=== PATIENT | male | born 1995 | race Caucasian/White ===

== ENCOUNTER 2018-11-07 21:39 | Inpatient (IN) | payer SELFPAY ==
[2018-11-07] MEDS ORDERED: NA CHLORIDE 0.9% 1,000 ML ONE (23:43)
[2018-11-07 23:58] LABS: Absolute Lymphocytes (CBC) 2.6 K/uL (0.7-4.9); Basophils % 0.9 % (0-1.3); Hematocrit 38.7 % (39.6-49.0); Lymphocytes % 30.1 % (15.3-44.8); MPV 8.5 fL (7.6-11.3); RBC Red Blood Cell Count 4.51 M/uL (4.33-5.43)
[2018-11-08] MEDS ORDERED: NA CHLORIDE 0.9% 1,000 ML ONE (02:29)
[2018-11-08] MEDS ORDERED: CEFEPIME 1 GM/100 ML BAG IV ONE (02:29)
--- NOTE | 2018-11-08 02:30 | EDPHYS ---
Physician Documentation [facility] Name: Robin Brooks Age: 23 yrs Sex: Male : 1995 Arrival Date: 11/07/2018 Time: 21:55 Bed 18 Private MD: ED Physician Parker Puckett HPI: 11/08 02:24 This 23 yrs old Male presents to ER via Ambulatory with complaints of Hip snw Pain. 02:24 The patient or guardian reports pain, swelling, to left anterior upper thigh/inguinal snw area. that occurred at an unknown site, sustained from unknown reason, There is no obvious deformity. The complaints affect the left upper thigh. Onset: The symptoms/episode began/occurred 5 week(s) ago, and became worse yesterday, and became persistent 1 weeks ago. Associated signs and symptoms: Loss of consciousness: the patient experienced no loss of consciousness. Severity of symptoms: At their worst the symptoms were moderate. It is unknown whether or not the patient has had similar symptoms in the past. another ED within the last 2 weeks, took a course of doxycycline. Historical: - Allergies: 11/07 22:38 No Known Allergies; ao - Home Meds: 22:38 Doxycycline Oral [Active]; ao - PMHx: 22:38 Hypertension; ao - PSHx: 22:38 None; ao - Immunization history:: Adult Immunizations up to date, Last tetanus immunization: unknown. - Social history:: Smoking status: Patient/guardian denies using tobacco, Patient uses alcohol, occasionally. Patient/guardian denies using street drugs, IV drugs. - Ebola Screening: : Patient negative for fever greater than or equal to 101.5 degrees Fahrenheit, and additional compatible Ebola Virus Disease symptoms Patient denies exposure to infectious person Patient denies travel to an Ebola-affected area in the 21 days before illness onset. ROS: 23:46 Constitutional: Negative for fever, chills, and weight loss, Eyes: Negative for injury, snw pain, redness, and discharge, ENT: Negative for injury, pain, and discharge, Neck: Negative for injury, pain, and swelling, Cardiovascular: Negative for chest pain, palpitations, and edema, Respiratory: Negative for shortness of breath, cough, wheezing, and pleuritic chest pain, Abdomen/GI: Negative for abdominal pain, nausea, vomiting, diarrhea, and constipation, Back: Negative for injury and pain, : Negative for injury, bleeding, discharge, and swelling, Skin: Negative for injury, rash, and discoloration, Neuro: Negative for headache, weakness, numbness, tingling, and seizure. 23:46 MS/extremity: Positive for pain, swelling, tenderness, warmth, of the left upper thigh, harder and more red than previous visit to [facility]. Exam: 23:45 Constitutional: This is a well developed, well nourished patient who is awake, alert, snw and in no acute distress. Head/Face: Normocephalic, atraumatic. Eyes: Pupils equal round and reactive to light, extra-ocular motions intact. Lids and lashes normal. Conjunctiva and sclera are non-icteric and not injected. Cornea within normal limits. Periorbital areas with no swelling, redness, or edema. ENT: Nares patent. No nasal discharge, no septal abnormalities noted. Tympanic membranes are normal and external auditory canals are clear. Oropharynx with no redness, swelling, or masses, exudates, or evidence of obstruction, uvula midline. Mucous membranes moist. Neck: Trachea midline, no thyromegaly or masses palpated, and no cervical lymphadenopathy. Supple, full range of motion without nuchal rigidity, or vertebral point tenderness. No Meningismus. Chest/axilla: Normal chest wall appearance and motion. Nontender with no deformity. No lesions are appreciated. Cardiovascular: Regular rate and rhythm with a normal S1 and S2. No gallops, murmurs, or rubs. Normal PMI, no JVD. No pulse deficits. Respiratory: Lungs have equal breath sounds bilaterally, clear to auscultation and percussion. No rales, rhonchi or wheezes noted. No increased work of breathing, no retractions or nasal flaring. Abdomen/GI: Soft, non-tender, with normal bowel sounds. No distension or tympany. No guarding or rebound. No evidence of tenderness throughout. Back: No spinal tenderness. No costovertebral tenderness. Full range of motion. MS/ Extremity: Pulses equal, no cyanosis. Neurovascular intact. Full, normal range of motion. Neuro: Awake and alert, GCS 15, oriented to person, place, time, and situation. Cranial nerves II-XII grossly intact. Motor strength 5/5 in all extremities. Sensory grossly intact. Cerebellar exam normal. Normal gait. Psych: Awake, alert, with orientation to person, place and time. Behavior, mood, and affect are within normal limits. 23:45 Skin: Appearance: normal except for affected area, induration, that is severe is noted, located on the left upper thigh, Other area erythematous, hard induration. Vital Signs: 22:31 BP 120 / 65; Pulse 80; Resp 18; Temp 98.1; Pulse Ox 99% ; Weight 108.86 kg; Height 5 ao ft. 8 in. (172.72 cm); Pain 0/10; 11/08 00:30 BP 129 / 67; Pulse 67; Resp 16; Pulse Ox 99% on R/A; jb4 01:30 BP 133 / 56; Pulse 63; Resp 16; Pulse Ox 98% on R/A; jb4 02:15 BP 134 / 66; Pulse 70; Resp 16; Pulse Ox 100% on R/A; jb4 03:00 BP 136 / 63; Pulse 73; Resp 16; Pulse Ox 98% on R/A; jb4 03:45 BP 108 / 42; Pulse 69; Resp 16; Pulse Ox 99% on R/A; jb4 11/07 22:31 Body Mass Index 36.49 (108.86 kg, 172.72 cm) ao MDM: 11/07 23:38 Patient medically screened. snw 11/08 02:28 Data reviewed: vital signs, nurses notes. Data interpreted: Pulse oximetry: on room air snw is 100 %. Interpretation: normal. Counseling: I had a detailed discussion with the patient and/or guardian regarding: the historical points, exam findings, and any diagnostic results supporting the discharge/admit diagnosis, lab results, radiology results, the need for further work-up and treatment in the hospital. 11/07 23:28 Order name: CBC with Diff; Complete Time: 00:07 snw 11/07 23:28 Order name: Chem 7; Complete Time: 00:25 snw 11/07 23:28 Order name: Blood Culture Adult (2) snw 11/07 23:51 Order name: CT Pelvis w cont snw Administered Medications: 11/07 23:55 Drug: NS 0.9% 1000 ml Route: IV; Rate: 125 ml/hr; Site: right antecubital; jb4 11/08 03:48 Follow up: IV Status: Infusion continued upon admission jb4 02:39 Drug: Cefepime 1 grams Route: IVPB; Rate: 200 ml/hr; Infused Over: 30 mins; Site: right jb4 antecubital; 03:09 Follow up: Response: No adverse reaction; IV Status: Completed infusion; IV Intake: jb4 100ml 02:39 Drug: NS 0.9% 1000 ml Route: IV; Rate: 1 bolus; Site: right antecubital; jb4 03:47 Follow up: Response: No adverse reaction; IV Status: Completed infusion; IV Intake: jb4 1000ml 03:37 Drug: vancoMYCIN 1 grams Route: IVPB; Infused Over: 2 hrs; Site: right antecubital; jb4 03:48 Follow up: Response: No adverse reaction; IV Status: Infusion continued upon admission jb4 Disposition: 05:15 Co-signature as Attending Physician, Parker Puckett MD Available for consultation at ps1 all times . Disposition: 11/08/18 02:28 Hospitalization ordered by Azar River for Observation. Preliminary diagnosis is Left upper thigh/inguinal abscess with surrounding cellulitis. - Bed requested for Telemetry/MedSurg (observation). - Status is Observation. jb4 - Condition is Stable. - Problem is an ongoing problem. - Symptoms have worsened. UTI on Admission? No Signatures: Dispatcher [employer] EDKY Angeles Contreras, ROBIN-C SUPERVISOR [employer]OLD [employer]STRUCTION-Csnw Margarita Kuhn RN RN Ryan Albert RN RN ao Bryson, James, RN RN [facility] Parker Puckett MD MD ps1 Corrections: (The following items were deleted from the chart) 03:30 02:28 Hospitalization Ordered by Azar River DO for Observation. Preliminary cg diagnosis is Left upper thigh/inguinal abscess with surrounding cellulitis. Bed requested for Telemetry/MedSurg (observation). Status is Observation. Condition is Stable. Problem is an ongoing problem. Symptoms have worsened. UTI on Admission? No. snw 04:29 03:30 11/08/2018 02:28 Hospitalization Ordered by Azar River DO for Observation. jb4 Preliminary diagnosis is Left upper thigh/inguinal abscess with surrounding cellulitis. Bed requested for Telemetry/MedSurg (observation). Status is Observation. Condition is Stable. Problem is an ongoing problem. Symptoms have worsened. UTI on Admission? No. cg
--- NOTE | 2018-11-08 02:30 | ER ---
Nurse's Notes [facility] Name: Robin Brooks Age: 23 yrs Sex: Male : 1995 Arrival Date: 11/07/2018 Time: 21:55 Bed 18 Private MD: Diagnosis: Left upper thigh/inguinal abscess with surrounding cellulitis Presentation: 11/07 22:32 Presenting complaint: Patient states: Report left hip pain for about five weeks. ao Patient has a rash that look like cellulitis in the left groin. Patient has been treated in the past and was prescribed antibiotics but the problem still there. Transition of care: patient was not received from another setting of care. Onset of symptoms is unknown. Risk Assessment: Do you want to hurt yourself or someone else? Patient reports no desire to harm self or others. Initial Sepsis Screen: Does the patient meet any 2 criteria? No. Patient's initial sepsis screen is negative. Does the patient have a suspected source of infection? No. Patient's initial sepsis screen is negative. Care prior to arrival: None. 22:32 Method Of Arrival: Ambulatory ao 22:32 Method Of Arrival: Ambulatory ao 22:32 Acuity: MAURICIO 3 ao Historical: - Allergies: 22:38 No Known Allergies; ao - Home Meds: 22:38 Doxycycline Oral [Active]; ao - PMHx: 22:38 Hypertension; ao - PSHx: 22:38 None; ao - Immunization history:: Adult Immunizations up to date, Last tetanus immunization: unknown. - Social history:: Smoking status: Patient/guardian denies using tobacco, Patient uses alcohol, occasionally. Patient/guardian denies using street drugs, IV drugs. - Ebola Screening: : Patient negative for fever greater than or equal to 101.5 degrees Fahrenheit, and additional compatible Ebola Virus Disease symptoms Patient denies exposure to infectious person Patient denies travel to an Ebola-affected area in the 21 days before illness onset. Screenin:10 Abuse screen: Denies threats or abuse. Denies injuries from another. Nutritional ao screening: No deficits noted. Tuberculosis screening: No symptoms or risk factors identified. Fall Risk None identified. Assessment: 22:30 General: Appears in no apparent distress. comfortable, Behavior is calm, cooperative, ao appropriate for age. Pain: Complains of pain in Right groin Pain does not radiate. Pain currently is 4 out of 10 on a pain scale. Quality of pain is described as burning. Neuro: Level of Consciousness is awake, alert, obeys commands, Oriented to person, place, time, situation, Appropriate for age Moves all extremities. Full function Speech is normal, Cardiovascular: Heart tones S1 S2 Capillary refill < 3 seconds Patient's skin is warm and dry. Respiratory: Airway is patent Respiratory effort is even, unlabored, Respiratory pattern is regular, symmetrical. GI: Abdomen is non-distended. : No signs and/or symptoms were reported regarding the genitourinary system. : Reports. EENT: No signs and/or symptoms were reported regarding the EENT system. Derm: Reports itching, In right groin area. Musculoskeletal: Range of motion: Swelling present in right groin area. 23:30 Reassessment: Patient appears in no apparent distress at this time. Patient and/or jb4 family updated on plan of care and expected duration. Pain level reassessed. Patient is alert, oriented x 3, equal unlabored respirations, skin warm/dry/pink. 11/08 00:30 Reassessment: Patient appears in no apparent distress at this time. Patient and/or jb4 family updated on plan of care and expected duration. Pain level reassessed. Patient is alert, oriented x 3, equal unlabored respirations, skin warm/dry/pink. 01:30 Reassessment: Patient appears in no apparent distress at this time. Patient and/or jb4 family updated on plan of care and expected duration. Pain level reassessed. Patient is alert, oriented x 3, equal unlabored respirations, skin warm/dry/pink. 02:20 Reassessment: Patient appears in no apparent distress at this time. Patient and/or jb4 family updated on plan of care and expected duration. Pain level reassessed. Patient is alert, oriented x 3, equal unlabored respirations, skin warm/dry/pink. 03:30 Reassessment: Patient appears in no apparent distress at this time. Patient and/or jb4 family updated on plan of care and expected duration. Pain level reassessed. Patient is alert, oriented x 3, equal unlabored respirations, skin warm/dry/pink. 04:26 Reassessment: Patient appears in no apparent distress at this time. Patient and/or jb4 family updated on plan of care and expected duration. Pain level reassessed. Patient is alert, oriented x 3, equal unlabored respirations, skin warm/dry/pink. Vital Signs: 11/07 22:31 BP 120 / 65; Pulse 80; Resp 18; Temp 98.1; Pulse Ox 99% ; Weight 108.86 kg; Height 5 ao ft. 8 in. (172.72 cm); Pain 0/10; 11/08 00:30 BP 129 / 67; Pulse 67; Resp 16; Pulse Ox 99% on R/A; jb4 01:30 BP 133 / 56; Pulse 63; Resp 16; Pulse Ox 98% on R/A; jb4 02:15 BP 134 / 66; Pulse 70; Resp 16; Pulse Ox 100% on R/A; jb4 03:00 BP 136 / 63; Pulse 73; Resp 16; Pulse Ox 98% on R/A; jb4 03:45 BP 108 / 42; Pulse 69; Resp 16; Pulse Ox 99% on R/A; jb4 11/07 22:31 Body Mass Index 36.49 (108.86 kg, 172.72 cm) ao ED Course: 11/07 21:55 Patient arrived in ED. cf2 22:37 Triage completed. ao 22:37 Arm band placed on right wrist. Patient placed in an exam room, on a stretcher, on ao pulse oximetry, Patient notified of wait time. 22:46 Angeles Contreras FNP-C is [facility] snw 22:46 Parker Puckett MD is Attending Physician. snw 23:10 Patient has correct armband on for positive identification. Pulse ox on. NIBP on. ao 23:38 Glenn Soria, RN is Primary Nurse. jb4 11/08 00:53 CT completed. Patient tolerated procedure well. Patient moved to CT via stretcher. Patient moved back from CT. 00:57 CT Pelvis w cont In Process Unspecified. EDMS 02:27 Azar River DO is Hospitalizing Provider. snw 04:28 No provider procedures requiring assistance completed. Patient admitted, IV remains in jb4 place. Administered Medications: 11/07 23:55 Drug: NS 0.9% 1000 ml Route: IV; Rate: 125 ml/hr; Site: right antecubital; jb4 11/08 03:48 Follow up: IV Status: Infusion continued upon admission jb4 02:39 Drug: Cefepime 1 grams Route: IVPB; Rate: 200 ml/hr; Infused Over: 30 mins; Site: right jb4 antecubital; 03:09 Follow up: Response: No adverse reaction; IV Status: Completed infusion; IV Intake: jb4 100ml 02:39 Drug: NS 0.9% 1000 ml Route: IV; Rate: 1 bolus; Site: right antecubital; jb4 03:47 Follow up: Response: No adverse reaction; IV Status: Completed infusion; IV Intake: jb4 1000ml 03:37 Drug: vancoMYCIN 1 grams Route: IVPB; Infused Over: 2 hrs; Site: right antecubital; jb4 03:48 Follow up: Response: No adverse reaction; IV Status: Infusion continued upon admission jb4 Intake: 03:09 IV: 100ml; Total: 100ml. jb4 03:47 IV: 1000ml; Total: 1100ml. jb4 Outcome: 02:28 Decision to Hospitalize by Provider. snw 04:28 Admitted to Med/surg accompanied by nurse, via wheelchair, room 214, with chart. jb4 04:28 Condition: stable 04:28 Discharge instructions given to patient, family, Instructed on the need for admit, Demonstrated understanding of instructions. 04:29 Patient left the ED. jb4 Signatures: Dispatcher [employer] EDMS Angeles Contreras, SENIOR QA TESTER-C SENIOR QA TESTER-Csnw Obey Pollock Alex, RN RN ao Bryson, James, RN RN jb4 Patrick Dinh 2
--- NOTE | 2018-11-08 02:59 | P.HP ---
Certification for Inpatient Patient admitted to: Inpatient With expected LOS: >2 Midnights Patient will require the following post-hospital care: None Practitioner: I am a practitioner with admitting privileges, knowledge of patient current condition, hospital course, and medical plan of care. Services: Services provided to patient in accordance with Admission requirements found in Title 42 Section 412.3 of the Code of Federal Regulations Patient History Date of Service: 11/08/18 Primary Care Provider: none Reason for admission: Fever, failed outpatient treatment History of Present Illness: 23-year-old male presented to the emergency room with fever. Patient was seen about 2 weeks ago for cellulitis to the left thigh. He was seen at [facility]. He had a major workup including CT scan which showed no drainable abscess at that time. HIV studies and workup unremarkable. Patient was sent home with doxycycline. Patient admits that he did not finish the doxycycline as the cellulitis did not improve. Over the last 2 weeks it has been getting worse. He start to notice some induration to the left upper thigh. Erythema, fever noted. He came to the ER for further evaluation. In the ER patient evaluated. White count 8.7, hemoglobin 13.3. Platelet count of 295. Percent eosinophils 4.5. Sodium 142, potassium 4.0. Creatinine 1.2 with a GFR 78. CT scan showed anterior proximal left thigh subcutaneous 4 cm abscess with cellulitis and associated lymphadenopathy. Patient was started on IV antibiotic therapy. Patient admitted for further evaluation and treatment. When I saw the patient ER, he appeared comfortable. Pain under control. at bedside. Patient does not recall any insect bite to the area. No mention of laceration or breakdown in skin. No exudate noted. Home medications list reviewed: Yes - Past Medical/Surgical History Diabetic: No Past Medical History: Patient denies medical history -: cyst moved to the left chest region Psychosocial/ Personal History: Patient is . He has 3 children. 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 - Family History Family History: Reviewed- Non-Contributory - Social History Smoking Status: Never smoker Alcohol use: Yes CD- Drugs: No Caffeine use: Yes Place of Residence: Home Review of Systems General: Fever, As per HPI Eyes: Unremarkable ENT: Unremarkable Respiratory: Unremarkable Cardiovascular: Unremarkable Gastrointestinal: Unremarkable Genitourinary: Unremarkable Musculoskeletal: Leg Pain, As per HPI Integumentary: As per HPI Neurological: Unremarkable Lymphatics: Enlarged lymph nodes, As per HPI Physical Examination - Physical Exam General: Alert, In no apparent distress, Oriented x3, Cooperative HEENT: Atraumatic, Normocephalic, PERRLA, Mucous membr. moist/pink Neck: Supple, No Thyromegaly Respiratory: Clear to auscultation bilaterally, Normal air movement Cardiovascular: Normal pulses, Regular rate/rhythm Gastrointestinal: Normal bowel sounds, Soft and benign, Non-distended, No tenderness, No masses, No rebound, No guarding Musculoskeletal: Other (Large injury did area to the anterior left upper thigh. Measuring about 4-5 cm. Erythema, warmth and pain noted) Integumentary: Other (As above) Neurological: Normal speech, Normal strength at 5/5 x4 extr, Normal tone, Normal affect Lymphatics: Inguinal lymphadenopathy - Studies Laboratory Data (last 24 hrs) 11/07/18 23:30: Sodium 142, Potassium 4.0, BUN 13, Creatinine 1.21, Glucose 81 11/07/18 23:30: WBC 8.7, Hgb 13.3 L, Hct 38.7 L, Plt Count 295 Assessment and Plan - Plan Impression: Anterior proximal left thigh subcutaneous 4 cm abscess with cellulitis and associated lymphadenopathy, failed outpatient therapy Plan: Patient admitted for further evaluation and treatment. Will keep the patient NPO as the patient will likely require surgical intervention today. Surgery consulted to further evaluate and treat. Will start IV vancomycin and cefepime for antibiotic coverage. Blood cultures obtained. Will monitor lab and electrolytes. Will provide DVT prophylaxis-Lovenox. Will provide medication for pain. Daytime hospitalist will continue his care. Anticipate discharge in the next 3-5 days pending surgical evaluation/treatment and clinical improvement. Discharge Plan: Home Plan to discharge in: Greater than 2 days - Advance Directives Does patient have a Living Will: No Does patient have a Durable POA for Healthcare: No - Code Status/Comfort Care Code Status Assessed: Yes (Patient is full code) Time Spent Managing Pts Care (In Minutes): 55
[2018-11-08] MEDS ORDERED: VANCOMYCIN 1 GM/VIAL ONE (03:23)
[2018-11-08] MEDS ORDERED: NA CHLORIDE 0.9% 250 ML ONE (03:23)
[2018-11-08] MEDS ORDERED: ONDANSETRON 4 MG/2 ML VIAL IV PRN (04:29)
[2018-11-08] MEDS ORDERED: HYDROCODONE/APAP 7.5/325 MG TAB PO PRN (04:29)
[2018-11-08] MEDS ORDERED: ACETAMINOPHEN 500 MG TAB PO PRN (04:29)
[2018-11-08] MEDS ORDERED: ACETAMINOPHEN 650MG/RECT SUPP RECT PRN (04:29)
[2018-11-08] MEDS ORDERED: TRAMADOL HCL 50 MG TAB PO PRN (04:29)
[2018-11-08 05:41] VITALS: BMI 36.5
[2018-11-08] MEDS ORDERED: Ringers Lactate 0 ML IV ONE (07:53)
[2018-11-08] MEDS: Ringers Lactate 1,000 ML IV ONE ×2 (08:00→14:25)
[2018-11-08] MEDS ORDERED: INFLUENZA VACCINE (for 3y+) 0.5 ML DOSE IMVAC ONE (08:00)
[2018-11-08] MEDS ORDERED: PROPOFOL 200 MG/20 ML VIAL IV ONE ×2 (08:22→14:23)
[2018-11-08] MEDS ORDERED: FENTANYL CITR 100 MCG/2 ML ONE ×2 (08:22→14:23)
[2018-11-08] MEDS ORDERED: MIDAZOLAM HCL 2 MG/2 ML INJ ONE ×3 (08:22→15:11)
[2018-11-08] MEDS ORDERED: LIDOCAINE 2% MPF 5 ML VIAL ONE ×2 (08:23→14:23)
[2018-11-08] MEDS ORDERED: GLYCOPYRROLATE 0.2 MG/ML SYR ONE (08:27)
[2018-11-08] MEDS ORDERED: ONDANSETRON 4 MG/2 ML VIAL ONE ×2 (08:27→14:24)
[2018-11-08] MEDS ORDERED: HYDRALAZINE HCL 20 MG/ML VIAL ONE ×2 (08:28→08:30)
--- NOTE | 2018-11-08 08:52 | CON ---
Date of Consultation: 11/08/2018 Diagnoses: Left thigh cellulitis and abscess, failure of outpatient treatment. History Of Present Illness: This is the case of a 23-year-old patient, apparently he has been in ER for the last 2 weeks with cellulitis of the anterior thigh. He has been in [place] ER and also this ER on more than 1 occasion. He has been taking doxycycline but has since not improved. Patient was admitted to the hospital with an abscess of the left anterior thigh, groin region. Surgical consult was obtained for incision and drainage. He denies any trauma, dysuria, hematuria, hematochezia or [place]. Denies recent traveling out of the country. Denies any family member sick at home. Past Medical History: None. Surgical History: None. Social History: He does not smoke. He does not drink alcohol. Family History: Noncontributory. Medications: Doxycycline. Review of Systems: Ten points, otherwise unremarkable. Physical Examination: GENERAL: The patient is awake and alert. No distress. HEENT: Pupils are equal and reactive, anicteric. NECK: Supple. CHEST: Clear. HEART: S1, S2. ABDOMEN: Soft and depressible. Nontender, nondistended. Bowel sounds positive. GENITALIA: No mass palpated. EXTREMITIES: Over the extremities and the left anterior thigh, right at the proximal inner thigh, th e patient has an area of cellulitis, have to be at least 15 x 18 cm in size. There is pre sent. No trauma seen. The rest of the leg looks intact with good peripheral pulses. Full range of motion. No cyanosis. RECTAL: Not involved. Laboratory Data: Blood work shows WBC count of 8.7, hemoglobin of 13.3, and potassium 4.0. Assessment: Left thigh cellulitis and abscess. Plan: Will be incision and drainage of left thigh cellulitis with benefits, alternatives, and risks including, but not limited to infection, bleeding, damage to adjacent structures, anesthesia complica tion, recurrence, UT, and even . He also understands this may not relieve any symptoms. He diane ht need more than one surgical intervention. He understood, signed a consent. He was booked in OR. JORGE/KALPESH Voice ID: [id number] Report ID: [id number]
[2018-11-08] MEDS ORDERED: LORazepam 2 MG/ML VIAL IV ONE (08:55)
[2018-11-08] MEDS ORDERED: HYDRALAZINE HCL 20 MG/ML VIAL IV PRN (08:57)
[2018-11-08] MEDS ORDERED: LABETALOL HCL 100 MG/20 ML ONE (08:58)
[2018-11-08] MEDS ORDERED: VANCOMYCIN 1 GM in NA CHLORIDE 0.9% 500 ML IVPB SCH (09:00)
[2018-11-08] MEDS: ENOXAPARIN 40 MG/0.4 ML SQ SCH (09:00)
[2018-11-08] MEDS: CEFEPIME/SWI 1gm 10 ML IV SCH ×2 (09:00→20:08)
[2018-11-08] MEDS ORDERED: CEFEPIME 1 GM/VIAL IV SCH ×2 (09:00→14:00)
[2018-11-08 09:40] LABS: Urine Appearance CLEAR; Urine Bilirubin NEGATIVE (NEG); Urine Blood NEGATIVE (NEG); Urine Color YELLOW; Urine Glucose NEGATIVE (NEG); Urine Protein NEGATIVE (NEG); Urine Specific Gravity >=1.030 (1.005-1.030); Urine Urobilinogen 0.2 mg/dL (0.2-1.0)
[2018-11-08 09:42] LABS: Barbiturates NEGATIVE (NEGATIVE); Benzodiazepines NEGATIVE (NEGATIVE); Cocaine NEGATIVE (NEGATIVE); METHAMPHETAM NEGATIVE (NEGATIVE); Methadone NEGATIVE (NEGATIVE); Opiates NEGATIVE (NEGATIVE); Phencyclidine NEGATIVE (NEGATIVE); THC Cannibis NEGATIVE (NEGATIVE); Urine Microscopic Reflex NO UMIC
--- NOTE | 2018-11-08 10:38 | RAD REPORT ---
EXAM DESCRIPTION: CT PELVIS WITH CONTRAST. CLINICAL HISTORY: Left inguinal and thigh pain. COMPARISON: None. TECHNIQUE: Axial CT imaging of the pelvis performed with intravenous contrast. Reformatted coronal a nd sagittal images reviewed. A dose reduction technique was utilized with automated exposure control according to patient size. FINDINGS: The imaged small bowel loops are normal in caliber. Normal appendix in the right lower desire drant. Moderate central within the sigmoid and rectum. No mesenteric edema. No ascites. Normal bladde r and prostate. There is left proximal anterior thigh subcutaneous induration. There is an irregular peripherally enh ancing deep subcutaneous 3.7 x 4.0 x 1.8 cm fluid collection. There are adjacent left inguinal enlarg ed lymph nodes. The largest is 5.6 x 1.7 x 1.3 cm. There is overlying skin thickening. No subcutaneou s emphysema. Nonenlarged right groin lymph nodes are present. The bony pelvis appears normal. Normal hips. Intact bony pelvis. IMPRESSION: 1. Anterior proximal left thigh subcutaneous 4.0 cm abscess with cellulitis and associat ed lymphadenopathy. 2. No acute finding within the pelvis.. Electronically signed by: Melva Joya DO 11/08/2018 1:09 AM CDT Due to temporary technical issues with the PACS/Fluency reporting system, reports are being signed by the in house radiologist as a courtesy to ensure prompt reporting. The interpreting radiologist is f gaylely responsible for the content of the report.
--- NOTE | 2018-11-08 10:39 | RAD REPORT ---
EXAM DESCRIPTION: CT - Head Brain Wo Cont - 11/08/2018 10:33 am CLINICAL HISTORY: headache, hypertension COMPARISON: Pelvis W/Cont dated 11/08/2018 TECHNIQUE: All CT scans are performed using dose optimization technique as appropriate and may inclu de automated exposure control or mA/KV adjustment according to patient size. FINDINGS: No intracranial hemorrhage, hydrocephalus or extra-axial fluid collection.No areas of brai n edema or evidence of midline shift. The paranasal sinuses and mastoids are clear except for a 11 mm mucous retention cyst or polyp in the right sphenoid sinus region. . The calvarium is intact. IMPRESSION: No acute intracranial abnormality.
--- NOTE | 2018-11-08 11:21 | RAD REPORT ---
EXAM DESCRIPTION: US - Extrem Venous W Compress Chaitanya - 11/08/2018 11:14 am CLINICAL HISTORY: edema to the left thigh, 4 cm abscess Bilateral leg edema and swelling. COMPARISON: No comparisons TECHNIQUE: Real-time sonographic interrogation of the left and right lower extremity deep venous sys tems was performed. FINDINGS: Normal compressibility, flow augmentation, phasic flow and spontaneous flow is identified in both the left and right lower extremity deep venous systems. IMPRESSION: No sonographic evidence of left or right lower extremity deep venous thrombosis.
[2018-11-08] MEDS ORDERED: LIDOCAINE 1% MPF 30 ML VIAL ONE (11:35)
--- NOTE | 2018-11-08 15:00 | P.BOP ---
Preoperative diagnosis: Left thigh cellulitis and abscess Postoperative diagnosis: same Primary procedure: Incision and drainage of Left thigh cellulitis and abscess Estimated blood loss: <10cc Specimen: pus Findings: necrotic fat with pus up to inguinal area Anesthesia: General Complications: None Transferred to: Recovery Room Condition: Good
[2018-11-08] MEDS: VANCOMYCIN 2 GM in NA CHLORIDE 0.9% 500 ML IVPB SCH (15:28)
[2018-11-08] MEDS: HYDROMORPHONE HCL 1 MG/ML INJ ONE ×2 (15:50→16:02)
[2018-11-08] MEDS: MORPHINE 2 MG/ML SYR IV PRN (21:39)
[2018-11-09] MEDS: VANCOMYCIN 2 GM in NA CHLORIDE 0.9% 500 ML IVPB SCH (02:25)
[2018-11-09 03:33] VITALS: O2SAT 96
[2018-11-09 06:25] LABS: Absolute Lymphocytes (CBC) 1.7 K/uL (0.7-4.9); Basophils % 0.3 % (0-1.3); Hematocrit 35.8 % (39.6-49.0); Lymphocytes % 20.7 % (15.3-44.8); MPV 8.3 fL (7.6-11.3); RBC Red Blood Cell Count 4.17 M/uL (4.33-5.43)
[2018-11-09 06:31] LABS: BUN Blood Urea Nitrogen 8 mg/dL (7-18); Bicarbonate 28 mmol/L (21-32); Glucose Level 93 mg/dL (74-106); Magnesium 1.8 mg/dL (1.8-2.4); Potassium 4.1 mmol/L (3.5-5.1); Sodium Level 142 mmol/L (136-145)
[2018-11-09] MEDS ORDERED: MAGNESIUM SULFATE 1 gm IVPB 1 GM/100 ML BAG IV ONE (09:00)
[2018-11-09] MEDS: CEFEPIME/SWI 1gm 10 ML IV SCH (09:29)
[2018-11-09] MEDS: ENOXAPARIN 40 MG/0.4 ML SQ SCH (09:30)
[2018-11-09] MEDS: MORPHINE 2 MG/ML SYR IV PRN (10:19)
--- NOTE | 2018-11-09 11:52 | P.DS ---
Admission Date: 11/08/18 Discharge Date: 11/09/18 Primary Care Provider: none Disposition: ROUTINE DISCHARGE Discharge Condition: GOOD Reason for Admission: Fever, failed outpatient treatment Consultations: Surgeon Dr. Chowdhury Procedures: Incision and drainage left thigh abscess Brief History of Present Illness: From H and P 23-year-old male presented to the emergency room with fever. Patient was seen about 2 weeks ago for cellulitis to the left thigh. He was seen at [facility]. He had a major workup including CT scan which showed no drainable abscess at that time. HIV studies and workup unremarkable. Patient was sent home with doxycycline. Patient admits that he did not finish the doxycycline as the cellulitis did not improve. Over the last 2 weeks it has been getting worse. He start to notice some induration to the left upper thigh. Erythema, fever noted. He came to the ER for further evaluation. In the ER patient evaluated. White count 8.7, hemoglobin 13.3. Platelet count of 295. Percent eosinophils 4.5. Sodium 142, potassium 4.0. Creatinine 1.2 with a GFR 78. CT scan showed anterior proximal left thigh subcutaneous 4 cm abscess with cellulitis and associated lymphadenopathy. Patient was started on IV antibiotic therapy. Patient admitted for further evaluation and treatment. Hospital Course: Patient is a 23-year-old male with no significant past medical history other than obesity comes in with abscess on his left thigh. Patient was started on IV antibiotics cultures were obtained. Dr. Chowdhury was consulted. Patient was taken for I and D as mentioned above. Patient tolerated procedure well. His white blood cell count remained stable. He did not have any signs of sepsis. Dressing changes were shown to the to be done at home. Patient did have elevated blood pressure while in the PACU prior to surgery. Has never been diagnosed with hypertension. Responded well to IV p.r.n. medications. I do not suspect any premature hypertension in this patient. He has been recommended to keep a blood pressure log at home and checked his blood pressure at different times and to establish care with a primary care physician. His blood pressure has been stable, not requiring any medications since PACU. He can have further workup done as an outpatient to rule out any secondary causes of hypertension. Discharge diagnosis Anterior proximal left thigh subcutaneous 4 cm abscess with cellulitis and associated lymphadenopathy, failed outpatient therapy Obesity Elevated blood pressure without diagnosis of hypertension Vital Signs/Physical Exam: Temp Pulse Resp BP Pulse Ox 98.2 F 76 16 124/58 L 97 11/09/18 08:00 11/09/18 08:00 11/09/18 08:00 11/09/18 08:00 11/09/18 08:00 General: Alert, In no apparent distress, Oriented x3, Obese HEENT: Atraumatic, PERRLA, EOMI Neck: Supple, JVD not distended Respiratory: Clear to auscultation bilaterally, Normal air movement Cardiovascular: No edema, Normal pulses, Regular rate/rhythm, Normal S1 S2 Gastrointestinal: Normal bowel sounds, Soft and benign, Non-distended, No tenderness Musculoskeletal: No tenderness Integumentary: Skin lesion (Incision site clean dry intact bandaged) Neurological: Normal speech, Normal strength at 5/5 x4 extr, Normal tone, Cranial nerves 3-12 intact, Normal affect Laboratory Data at Discharge: WBC 8.3 K/uL (4.3-10.9) 11/09/18 05:21 Hgb 12.4 g/dL (13.6-17.9) L 11/09/18 05:21 Hct 35.8 % (39.6-49.0) L 11/09/18 05:21 Plt Count 233 K/uL (152-406) D 11/09/18 05:21 Sodium 142 mmol/L (136-145) 11/09/18 05:21 Potassium 4.1 mmol/L (3.5-5.1) 11/09/18 05:21 BUN 8 mg/dL (7-18) 11/09/18 05:21 Creatinine 0.86 mg/dL (0.55-1.3) 11/09/18 05:21 Glucose 93 mg/dL (74-106) 11/09/18 05:21 Magnesium 1.8 mg/dL (1.8-2.4) 11/09/18 05:21 Home Medications: Codeine/APAP [Tylenol W/Codeine #3 tab] 1 tab PO Q4HP PRN #30 tab 11/08/18 NaCl 0.9% Irr Bottle [Ns Irrigation Bottle] 1,000 ml IR DAILY #1 btl 11/08/18 Sulfamethoxazole/Trimethoprim [Bactrim Ds Tablet] 1 each PO BID #14 tablet 11/08 New Medications: Codeine/APAP [Tylenol W/Codeine #3 tab] 1 tab PO Q4HP PRN #30 tab PRN Reason: Pain NaCl 0.9% Irr Bottle [Ns Irrigation Bottle] 1,000 ml IR DAILY #1 btl Sulfamethoxazole/Trimethoprim [Bactrim Ds Tablet] 1 each PO BID #14 tablet Patient Discharge Instructions: Wet to dry NS packing left thigh daily. Establish care with PCP. f/up w surgeon Dr. Chowdhury in 1 week. Keep log of BP at home. Return to ER for worsening condition Diet: Regular Activity: No lifting more than 10 lbs Followup: Lacho Chowdhury MD [ACTIVE - CAN ADMIT] - 1 Week Time spent managing pt's care (in minutes): 33
[2018-11-09 15:09] VITALS: BP 110/51; TEMP 98.6
--- NOTE | 2018-11-09 19:01 | PN ---
Date of Progress Note: 11/08/2018 Subjective: Patient seen and examined. Chart reviewed and case discussed with Dr. Chowdhury and Dr. Zurita. Patient was in the OR, however, had sudden onset of worsening blood pressure, elevated with di astolic in the 120s. Patient was given labetalol and hydralazine, which improved his blood pressure. Patient also has sudden onset of headache associated with the hypertensive episode. Surgery was po stponed. Medications: Medication list reviewed. Physical Examination: Vital Signs: Temperature 97.7, heart rate 99, blood pressure 142/65, respirations 24, O2 97% on room air. General: Awake, alert, oriented x3. Obese male, BMI 36. In mild distress. CV: S1 and S2. Regular rate and rhythm. Peripheral pulses present. Respiratory: Moving air well bilaterally. No wheezing or stridor. No use of accessory muscles. Gastrointestinal: Abdomen is soft, nontender, nondistended. Positive bowel sounds. No guarding or rigidity. Extremities: No clubbing, cyanosis, or edema. Laboratory Data: UDS is negative. Urine is negative. Procalcitonin less than 0.05. CT scan of the head personally reviewed shows no acute intracranial abnormality. Doppler venous shows no sonograph ic evidence of left or right lower extremity thrombosis. CT scan of the pelvis shows anterior proxim al left thigh subcutaneous 4 cm abscess with cellulitis and associated lymphadenopathy. No acute fin dings within the pelvis. Assessment And Plan: A 23-year-old male with: 1.Anterior proximal left thigh abscess 4 cm with associated lymphadenopathy, failed outpatient treat ment. We will continue with IV antibiotics with vancomycin and cefepime. Cultures have been obtaine d. Patient is scheduled to undergo surgery once blood pressure is improved by Dr. Chowdhury. 2.Cellulitis of the left lower extremity secondary to above. Continue with IV antibiotics. Follow up on culture results. 3.Obesity, BMI of 36.5. 4.Elevated blood pressure without diagnosis of hypertension, improved with hydralazine and labetalol . Patient has never been diagnosed with hypertension before, however, states that at all of his visi ts to the hospital has had elevated blood pressure, was never formally worked up by transfer station attendant or f amily doctor. 5.Deep vein thrombosis prophylaxis. SCDs. No chemical anticoagulation due to surgery. 6.Disposition. Likely discharge in 24 to 48 hours depending on clinical response. SA/MODL Voice ID: [id number] Report ID: [id number]
--- NOTE | 2018-11-09 19:04 | OP ---
Date of Procedure: 11/08/2018 Surgeon: Lacho Chowdhury MD Preoperative Diagnosis: Left thigh cellulitis and abscess. Postoperative Diagnosis: Left thigh cellulitis and abscess. Procedures: Incision and drainage of complex left thigh cellulitis and abscess. Findings: Patient has necrotic fat over the area with cellulitis and also pus that goes into the ing uinal region. Biopsy of the necrotic fat was sent out and also cultures. Indications: This is the case of a 23-year-old patient dealing over the last 2 weeks with infection of the left groin area. He has been on antibiotics on and off, not making any improvement so he was admitted to the hospital with a bulge in the area near the femoral region and the inguinal region, di agnosed with an abscess, so we offered him incision and drainage with benefits, alternatives, and ris ks including, but not limited to infection, bleeding, damage to adjacent structures, anesthesia compl ications, recurrence, [place], and even . He also understands this may not relieve any symptoms, he might need more than one surgical intervention. He also understands he will require wound care. He signed a consent. Description Of Procedure: Patient was brought to the operating room, placed in supine position. Ane sthesia was done without complication. Left groin area was prepped and draped in the usual sterile f ashion. Local anesthesia was applied followed by sharp incision of the skin all the way down to the fatty tissue. Necrotic fat was found, abscess was found. We opened the abscess. Loculations were e xplored, opened. This goes to the inguinal region. The area was profusely irrigated. Hemostasis wa s obtained. Local anesthetic was applied. Culture was sent, biopsy was sent, and the area was packe d with iodoform. Patient tolerated the procedure well. Patient was sent to recovery in stable condition. JORGE/KALPESH Voice ID: [id number] Report ID: [id number]
== END 2018-11-09 14:22 | disposition home or self-care (01) | DRG 989 ==
LOC: ER 21:39 → ERHOLD 11-08 03:17 → 2ND 11-08 03:53
PROVIDERS: ADMIT Family Medicine; ATTEND Family Medicine
PROC: 0Y960ZX Drainage of Left Inguinal Region, Open Approach, Diagnostic (ICD-10-PCS; principal; 2018-11-08 08:15)
DX: L03.116 Cellulitis of left lower limb (principal); L02.416 Cutaneous abscess of left lower limb; E66.9 Obesity, unspecified; Z68.36 Body mass index [BMI] 36.0-36.9, adult; R03.0 Elevated blood-pressure reading, without diagnosis of hypertension; R59.1 Generalized enlarged lymph nodes
CPT/HCPCS: 36415; 70450; 72193; 80048; 80307; 81003; 83735; 84145; 85025; 87040; 87070; 87075; 87205; 88304; 93970; 96361; 96365; 96375; 99285; J0360; J0692; J1170; J1650; J2250; J2270; J2405; J2704; J3010; J3475; J7030; J7040; J7120; Q9967